=== PATIENT | female | born 1970 | race Caucasian/White ===

== ENCOUNTER → 2016-11-25 | Outpatient (CLI) | payer OTHER | END | disposition home or self-care (01) | LOC: LABWHC1 09:41 | PROVIDERS: ATTEND Internal Medicine Critical Care Medicine | DX: E03.9 Hypothyroidism, unspecified (principal) | CPT/HCPCS: 36415; 84439; 84443 ==

== ENCOUNTER → 2019-06-01 | Outpatient (CLI) | payer OTHER ==
--- NOTE | 2019-06-02 08:48 | CT ---
EXAMINATION TYPE: CT abdomen pelvis w con DATE OF EXAM: 06/01/2019 COMPARISON: NONE HISTORY: 48-year-old female LLQ pain TECHNIQUE: Contiguous axial scanning of the abdomen and pelvis following administration of 100 ml Iso marilyn 300 IV contrast. Delayed images through the kidneys and coronal/sagittal reconstructions perform ed. CT DLP: 823.8 mGycm Automated exposure control for dose reduction was used. FINDINGS: Heart normal size without pericardial effusion. Lung bases clear without pleural effusion. Approximately 10-15 subcentimeter hypodensities within the liver, too small for accurate CT character ization, largest measuring 1.1 cm near the right hepatic dome, probable cysts, but again, indetermina te. Portal venous system is patent. No biliary duct dilatation. Gallbladder, adrenal glands, kidneys, spleen, and pancreas appear within normal limits. 2.2 cm wide d iverticulum of the third portion of the duodenum projecting into the pancreatic head region. No dilated small bowel, free fluid, or free air. No mesenteric or retroperitoneal lymphadenopathy. Mild stool burden. Oral contrast progressed to the descending colon. Mild proximal sigmoid diverticul osis. Bladder urine distended. Very large bulky fibroid uterus measuring up to 16.1 x 10.1 x 9.3 cm. Largest fibroid is at the fundu s, primarily intramural possibly with a submucosal component measuring up to 8.6 cm. There seems to be some heterogeneity in the region of the cervix, refer to axial image 67 and sagitta l image 70. Pelvic phleboliths. 1.67 m dominant follicle or functional cyst in the left ovary. Right ovary is visualized. No abnormal fluid collection in the pelvis or pelvic lymphadenopathy. Bones: No osseous destructive process. IMPRESSION: 1. LARGE, BULKY FIBROID UTERUS MEASURING UP TO 16.1 CM. LARGEST FIBROID IS AT THE FUNDUS, PRIMARILY I NTRAMURAL BUT WITH A POSSIBLE SUBMUCOSAL COMPONENT MEASURING UP TO 8.6 CM. IF INDICATED, FEMALE PELVI C MRI CAN BE PERFORMED FOR FIBROID MAPPING. 2. NUMEROUS SUBCENTIMETER HEPATIC HYPODENSITIES ARE INDETERMINATE BUT LIKELY REPRESENT CYSTS. 3. HETEROGENEOUS DENSITY OF THE CERVIX COULD REPRESENT UNDERLYING NABOTHIAN CYSTS. RECOMMEND PELVIC U LTRASOUND VERSUS MRI AND/OR PAP SMEAR TO FURTHER EVALUATE. 4. MILD PROXIMAL SIGMOID DIVERTICULOSIS WITHOUT EVIDENCE FOR ACUTE DIVERTICULITIS.
== END | disposition home or self-care (01) ==
LOC: RADCTMAIN 13:27
PROVIDERS: ATTEND Internal Medicine Critical Care Medicine
DX: D25.9 Leiomyoma of uterus, unspecified (principal); K57.30 Diverticulosis of large intestine without perforation or abscess without bleeding; N88.8 Other specified noninflammatory disorders of cervix uteri
CPT/HCPCS: 74177; Q9967

== ENCOUNTER → 2021-09-10 | Outpatient (CLI) | payer OTHER ==
[2021-09-10 10:29] LABS: Basophils # (A) 0.06 X 10*3/uL (0.00-0.10); Basophils % (A) 0.8 %; Eosinophils # (A) 0.73 X 10*3/uL (0.04-0.35); Eosinophils % (A) 10.2 %; HCT 45.8 % (37.2-46.3); HGB 14.4 g/dL (12.0-15.0); Immature Grans, Automated 0.6 %; Lymphocytes # (A) 1.38 X 10*3/uL (0.90-5.00); Lymphocytes % (A) 19.2 %; MCHC 31.4 g/dL (32.0-37.0); MCV 85.8 fL (80.0-97.0); Mean Platelet Volume 9.5 fL (9.5-12.2); Monocytes # (A) 0.58 X 10*3/uL (0.20-1.00); Monocytes % (A) 8.1 %; NRBC Per 100 WBC 0 /100 WBCS (0.0-0.0); Neutrophils # (A) 4.38 X 10*3/uL (1.80-7.70); Neutrophils % (A) 61.1 %; Platelet Count 385 X 10*3/uL (140-440); RBC 5.34 X 10*6/uL (4.10-5.20); RDW 13.5 % (11.5-14.5); WBC 7.17 X 10*3/uL (4.50-10.00)
[2021-09-10 11:01] LABS: ALT 13 U/L (8-44); AST 16 U/L (13-35); African American GFR (CKD) 105.5 (60.0-200.0); Albumin 4.2 g/dL (3.8-4.9); Albumin/Globulin Ratio 1.75 (1.60-3.17); Alkaline Phosphatase 87 U/L (41-126); BUN/Creat Ratio 11.64 Ratio (12.00-20.00); Blood Urea Nitrogen 8.8 mg/dL (9.0-27.0); Calcium 9.3 mg/dL (8.7-10.3); Carbon Dioxide 26.5 mmol/L (20.0-27.5); Chloride 107 mmol/L (96-109); Globulin 2.4 g/dL (1.6-3.3); Glucose 99 mg/dL (70-110); LDL Cholesterol,Calculated 173.7 mg/dL (0.0-131.0); Non-African American GFR(CKD) 91.1 (60.0-200.0); Potassium 4.5 mmol/L (3.5-5.5); Sodium 142 mmol/L (135-145); Total Protein 6.6 g/dL (6.2-8.2)
== END | disposition home or self-care (01) ==
LOC: LABWHC1 08:01
PROVIDERS: ATTEND Internal Medicine Critical Care Medicine
DX: Z00.00 Encounter for general adult medical examination without abnormal findings (principal); J45.909 Unspecified asthma, uncomplicated; E03.9 Hypothyroidism, unspecified; K21.9 Gastro-esophageal reflux disease without esophagitis; D25.9 Leiomyoma of uterus, unspecified
CPT/HCPCS: 36415; 80053; 80061; 82306; 83036; 84439; 84443; 85025

== ENCOUNTER → 2021-09-22 | Outpatient (CLI) | payer OTHER ==
--- NOTE | 2021-09-22 15:57 | XR ---
EXAMINATION TYPE: XR knee limited LT DATE OF EXAM: 09/22/2021 2:28 PM INDICATION: Patient age:Female; 50 years old; Reason for study: M25.462 EFFUSION, LEFT KNEE; PHH. COMPARISON: Left tibia/fibular radiograph 03/14/2013. TECHNIQUE: The Left knee(s) was examined in frontal and lateral projections. FINDINGS: No evidence of any acute osseous pathology, joint space narrowing, or soft tissue swellin g. Trace suprapatellar joint effusion. IMPRESSION: * No acute fracture or dislocation. * Trace suprapatellar joint effusion.
== END | disposition home or self-care (01) ==
LOC: RADXRMAIN 14:17
PROVIDERS: ATTEND Internal Medicine Critical Care Medicine
DX: M25.462 Effusion, left knee (principal)

== ENCOUNTER → 2021-11-03 | Outpatient (CLI) | payer OTHER ==
--- NOTE | 2021-11-03 10:06 | MR ---
EXAMINATION TYPE: MR knee LT wo con DATE OF EXAM: 11/03/2021 COMPARISON: None HISTORY: LEFT KNEE PAIN TECHNIQUE: Multiplanar, multisequence imaging of the left knee is performed without IV contrast. FINDINGS: MEDIAL MENISCUS: Anterior and posterior horns are intact without tear. LATERAL MENISCUS: Anterior and posterior horns are intact without tear. CRUCIATE LIGAMENTS: Increased signal within the ACL is felt to reflect partial tear or strain. No vance dence for full-thickness tear. PCL is intact. COLLATERAL LIGAMENTS: The medial collateral ligament and lateral collateral ligament complex are inta ct and unremarkable. EXTENSOR MECHANISM: Visualized quadriceps and patellar tendons are intact. EFFUSION: No significant suprapatellar joint effusion. POPLITEAL CYST: No popliteal/donaldson cyst. TRICOMPARTMENT SPACES: Within normal limits CARTILAGE: Intact BONE MARROW SIGNAL: No focal abnormal marrow signal is appreciated. OTHER: No additional significant abnormality is appreciated. IMPRESSION: 1.Increased signal within the ACL is felt to reflect partial tear or strain. No evidence for full-thi ckness tear.
== END | disposition home or self-care (01) ==
LOC: RADMRIMAIN 07:37
PROVIDERS: ATTEND Orthopaedic Surgery
DX: M25.562 Pain in left knee (principal)

== ENCOUNTER → 2022-01-06 | Outpatient (CLI) | payer OTHER ==
[2022-01-06 14:33] LABS: Basophils # (A) 0.06 X 10*3/uL (0.00-0.10); Basophils % (A) 0.9 %; Eosinophils # (A) 0.68 X 10*3/uL (0.04-0.35); Eosinophils % (A) 9.7 %; HCT 46.3 % (37.2-46.3); HGB 14.9 g/dL (12.0-15.0); Immature Grans, Automated 0.4 %; Lymphocytes # (A) 1.25 X 10*3/uL (0.90-5.00); Lymphocytes % (A) 17.9 %; MCH 28.1 pg (27.0-32.0); MCHC 32.2 g/dL (32.0-37.0); MCV 87.2 fL (80.0-97.0); Mean Platelet Volume 10.2 fL (9.5-12.2); Monocytes # (A) 0.54 X 10*3/uL (0.20-1.00); Monocytes % (A) 7.7 %; NRBC Per 100 WBC 0 /100 WBCS (0.0-0.0); Neutrophils # (A) 4.42 X 10*3/uL (1.80-7.70); Neutrophils % (A) 63.4 %; Platelet Count 392 X 10*3/uL (140-440); RBC 5.31 X 10*6/uL (4.10-5.20); RDW 13.4 % (11.5-14.5); WBC 6.98 X 10*3/uL (4.50-10.00)
== END | disposition home or self-care (01) ==
LOC: LABPAT 08:58
PROVIDERS: ATTEND Orthopaedic Surgery
DX: Z01.818 Encounter for other preprocedural examination (principal); M23.92 Unspecified internal derangement of left knee; R94.31 Abnormal electrocardiogram [ECG] [EKG]
CPT/HCPCS: 85025; 93005

== ENCOUNTER 2022-01-21 09:49 | Day surgery (SDC) | payer OTHER ==
--- NOTE | 2022-01-21 02:09 | HP ---
HISTORY AND PHYSICAL DATE OF SURGERY: 01/21/2022. HISTORY OF PRESENT ILLNESS: Reina Veloz is a 51-year-old patient who was seen with progressive left knee pain. After having treatment options discussed, she elected to proceed with left knee arthroscopy. Consent was obtained. PAST MEDICAL HISTORY: Hypothyroidism, asthma. PAST SURGICAL HISTORY: Noncontributory. DAILY MEDICATIONS: 1. Levothyroxine. 2. Singulair. ALLERGIES: None. SOCIAL HISTORY: She denies current tobacco use. PHYSICAL EVALUATION OF THE LEFT KNEE: Range of motion is 0-130. Mild effusion. Tenderness medial joint line. Positive medial Ann's. Ligaments stable. Hip rotation without pain. Distal neurovascular exam intact. RADIOGRAPHS: Left knee radiographs revealed no osseous abnormality. MRI left knee revealed a partial ACL tear. IMPRESSION: 1. Internal derangement left knee with partial ACL tear. 2. Hypothyroidism. 3. Asthma. PLAN: Left knee arthroscopy with debridement, possible partial medial meniscectomy. MMODL / IJN: [id number] /
[~2022-01-21 09:49] MED LIST: DEXAMETHASONE SOD PHOSPHATE 4 MG/ML 1 ML VIAL IV ONE; HYDROmorphone 0.5 MG/0.5 ML SYRINGE IVP PRN; LACTATED RINGERS 1,000 ML IV SCH; LIDOCAINE 1% (10MG/ML) FOR IV START INTRADERMA PRN; MIDAZOLAM 2 MG/2 ML VIAL IV PRN; ONDANSETRON 4 MG/2 ML VIAL IVP ONE
[2022-01-21 10:44] VITALS: TEMP 97.2
[2022-01-21 10:56] LABS: Glucose,Whole Blood 98 mg/dL (70-110)
[2022-01-21 11:17] LABS: Potassium 4.5 mmol/L (3.5-5.1)
[2022-01-21] MEDS ORDERED: MIDAZOLAM 2 MG/2 ML VIAL ONE (12:21)
[2022-01-21] MEDS ORDERED: SUCCINYLCHOLINE CHLORIDE 200 MG/10 ML VIAL IV ONE (12:21)
[2022-01-21] MEDS ORDERED: PROPOFOL 10 MG/ML 20 ML VIAL IV ONE (12:21)
[2022-01-21] MEDS ORDERED: LIDOCAINE 2% INJ 20 MG/ML (2 ML VIAL) ONE (12:21)
[2022-01-21] MEDS ORDERED: fentaNYL (PF) 50 MCG/ML 2 ML AMP ONE (12:21)
[2022-01-21] MEDS ORDERED: BUPIVACAINE (PF) 0.25% 30 ML VIAL SQ ONE ×2 (12:34→12:59)
[2022-01-21] MEDS ORDERED: LACTATED RINGERS 1,000 ML IV ONE (12:52)
--- NOTE | 2022-01-21 13:11 | P.OP ---
Date of Procedure: 01/21/22 Preoperative Diagnosis: Internal derangement left knee Postoperative Diagnosis: 1. Tear medial and lateral meniscus left knee 2. Reactive synovitis medial, lateral and suprapatellar compartments left knee Procedure(s) Performed: 1. Arthroscopic partial medial and lateral meniscectomy left knee 2. Arthroscopic partial synovectomy medial, lateral and suprapatellar compartments left knee Anesthesia: GETA, local Surgeon: Pablo Cordova Estimated Blood Loss (ml): 7 Pathology: none sent Condition: stable Disposition: PACU Indications for Procedure: 51-year-old patient seen with progressive left knee pain. After treatment options were discussed, she elected to proceed with arthroscopy. Operative Findings: See description of procedure Description of Procedure: Patient was taken to the operative suite. Patient underwent a general anesthetic by the department of anesthesia. Patient was given preoperative antibiotics. The left lower extremity was placed in a well-padded arthroscopic leg chapin. The left leg was prepped and draped in the normal sterile orthopedic fashion. A lateral parapatellar and suprapatellar incision was made. Trochars were inserted. Arthroscopy was initiated. Suprapatellar pouch re vealed diffuse thick reactive synovitis. The patellofemoral joint appeared to articulate congruently. There with grade 1/2 chondromalacia patella without significant osteochondral tears.. The scope was guided into the medial gutter. No loose bodies or plica were identified. The scope was then guided into the medial compartment. A medial parapatellar incision was made. Trocar inserted followed by probe. There was a small radial tear posterior horn medial meniscus. There was no significant chondromalacia of the medial compartment. There was some reactive synovitis anteriorly. I performed a partial medial meniscectomy getting down to stable meniscal tissue. I performed a partial synovectomy decompressing the reactive synovitis. The residual meniscus was stable. There was good decompression of the synovitis. Scope and probe were then guided into the intercondylar notch. Cruciates were identified, probed and found to be stable. The scope and probe were then guided into lateral compartment. There was a radial tear mid body lateral meniscus. There was no significant chondromalacia. There was reactive synovitis anteriorly. I performed a partial lateral meniscectomy. I performed a partial synovectomy. residual meniscus was stable. I performed a partial synovectomy. The scope was in guided back into the suprapatellar compartment. I performed a partial synovectomy decompressing the reactive synovitis. The shaver was removed. There was good decompression of the synovitis. I took one more look around the entire knee, no residual debris. Instruments were now removed from the joint. The joint was infiltrated with .25% Marcaine. Steri-Strips were applied to the portal sites. Sterile dressings were applied. The patient was placed into a VIVIANE hose. No tourniquet was utilized. The patient was awakened, transferred to a bed and taken to recovery stable satisfactory condition.
[2022-01-21] MEDS ORDERED: HYDROcodone/APAP 5-325MG 1 EACH TAB ONE (14:11)
[2022-01-21] MEDS ORDERED: HYDROcodone/APAP 5-325MG 1 EACH TAB PO ONE (14:11)
[2022-01-21 14:47] VITALS: RESP 20
[2022-01-21 15:23] VITALS: BP 123/65; PULSE 68
== END 2022-01-21 15:12 | disposition home or self-care (01) ==
LOC: OR 09:49
PROVIDERS: ATTEND Orthopaedic Surgery
DX: S83.282A Other tear of lateral meniscus, current injury, left knee, initial encounter (principal); E03.9 Hypothyroidism, unspecified; J45.909 Unspecified asthma, uncomplicated; Z79.899 Other long term (current) drug therapy; X58.XXXA Exposure to other specified factors, initial encounter
CPT/HCPCS: 81025; 80051; 29880; J2250; J0330; J1100; J0690; J2405; J3010; J2704; J2001

== ENCOUNTER → 2023-09-09 | Outpatient (CLI) | payer OTHER ==
--- NOTE | 2023-09-09 12:51 | US ---
EXAMINATION TYPE: US venous doppler duplex LE DATE OF EXAM: 09/09/2023 12:35 PM COMPARISON: NONE CLINICAL INDICATION: Female, 52 years old with history of R22.42 LOCALIZED SWELLING, MASS AND LUMP, L EFT LOW; edema SIDE PERFORMED: Bilateral TECHNIQUE: The lower extremity deep venous system is examined utilizing real time linear array sonog ok with graded compression, doppler sonography and color-flow sonography. VESSELS IMAGED: Common Femoral Vein Deep Femoral Vein Greater Saphenous Vein * Femoral Vein Popliteal Vein Small Saphenous Vein * Proximal Calf Veins (* superficial vessels) Right Leg: Negative for DVT Left Leg: Negative for DVT IMPRESSION: Grayscale, color doppler, spectral doppler imaging performed of the deep veins of the lo wer extremities. There is normal flow, compressibility, vascular waveforms.
== END | disposition home or self-care (01) ==
LOC: RADUSWWP 12:14
PROVIDERS: ATTEND Internal Medicine Critical Care Medicine
DX: R22.42 Localized swelling, mass and lump, left lower limb (principal)
CPT/HCPCS: 93970

== ENCOUNTER 2023-11-15 07:41 | Day surgery (SDC) | payer OTHER ==
[~2023-11-15 07:41] MED LIST changes: -DEXAMETHASONE SOD PHOSPHATE 4 MG/ML 1 ML VIAL IV ONE; -HYDROmorphone 0.5 MG/0.5 ML SYRINGE IVP PRN; -LACTATED RINGERS 1,000 ML IV SCH; -LIDOCAINE 1% (10MG/ML) FOR IV START INTRADERMA PRN; -MIDAZOLAM 2 MG/2 ML VIAL IV PRN; -ONDANSETRON 4 MG/2 ML VIAL IVP ONE; +Pre Op ABX Message 1 EACH MISC MISCELLANE ONE
--- NOTE | 2023-11-15 07:44 | P.GSHP ---
History of Present Illness H&P Date: 11/15/23 Chief Complaint: Left thigh lipoma 53-year-old female here for excision left thigh lipoma. Present for quite some time but increasing in size. Soreness at times. No prior biopsy or excisions. Past Medical History Past Medical History: Asthma, Thyroid Disorder Additional Past Medical History / Comment(s): Seasonal allergies. History of Any Multi-Drug Resistant Organisms: None Reported Past Surgical History: Orthopedic Surgery, Uterine Ablation Additional Past Surgical History / Comment(s): Trigger finger surgery, lft knee torn mensicus, Past Anesthesia/Blood Transfusion Reactions: No Reported Reaction Additional Past Anesthesia/Blood Transfusion Reaction / Comment(s): difficulty waking up Smoking Status: Former smoker - Past Family History Father Family Medical History: Congestive Heart Failure (CHF), Hyperlipidemia, Hypertension, Renal Disease Additional Family Medical History / Comment(s): Dialysis Mother Family Medical History: Diabetes Mellitus Medications and Allergies Home Medications Medication Instructions Recorded Confirmed Type Levothyroxine Sodium [Synthroid] 75 mcg PO DAILY 05/18/17 11/09/23 History Montelukast [Singulair] 10 mg PO HS 01/19/22 11/09/23 History Albuterol Inhaler [Ventolin Hfa 1 - 2 puff INHALATION Q6H PRN 01/20/22 11/09/23 History Inhaler] Iron(Unk) 1 tab PO Q72H 11/09/23 11/09/23 History Vit D(Unk) 1 tab PO DAILY 11/09/23 11/09/23 History Allergies Allergy/AdvReac Type Severity Reaction Status Date / Time No Known Allergies Allergy Verified 11/09/23 14:00 Surgical - Exam Physical exam: General: Well-developed, well-nourished HEENT: Normocephalic, sclerae nonicteric Abdomen: Nontender, nondistended Extremities: No edema, left thigh with pedunculated left thigh lipoma 6 x 4 cm Neuro: Alert and oriented Assessment and Plan (1) Lipoma of left thigh Narrative/Plan: 53-year-old female with left thigh lipoma. Will proceed with excision left thigh lipoma at this time. Risks of bleeding, infection, recurrence, seroma, possible need for drain placement, numbness, nerve injury reviewed. She understands and wishes to proceed. Current Visit: Yes Status: Acute Code(s): D17.24 - BENIGN LIPOMATOUS NEOPLASM OF SKIN, SUBCU OF LEFT LEG SNOMED Code(s): 241236875
[2023-11-15] MEDS ORDERED: HYDROmorphone 0.5 MG/0.5 ML SYRINGE IVP PRN (08:07)
[2023-11-15] MEDS ORDERED: LIDOCAINE 1% (10MG/ML) FOR IV START INTRADERMA PRN (08:07)
[2023-11-15] MEDS ORDERED: droPERidol 5 MG/2 ML VIAL IVP PRN (08:07)
[2023-11-15] MEDS: ONDANSETRON 4 MG/2 ML VIAL IVP ONE (08:34)
[2023-11-15] MEDS: HEPARIN SODIUM,PORCINE 5,000 UNIT/ML 1 ML VIAL SQ PRN (08:34)
[2023-11-15] MEDS: DEXAMETHASONE SOD PHOSPHATE 4 MG/ML 1 ML VIAL IV ONE (08:34)
[2023-11-15] MEDS: ACETAMINOPHEN TAB 500 MG TAB PO PRN (08:34)
[2023-11-15] MEDS: LACTATED RINGERS 1,000 ML IV SCH (08:41)
[2023-11-15] MEDS: IV FLUID CONTINUATION 1,000 ML IV ONE ×3 (08:56→10:28)
[2023-11-15] MEDS ORDERED: fentaNYL (PF) 50 MCG/ML 2 ML AMP ONE (09:06)
[2023-11-15] MEDS ORDERED: LIDOCAINE 1% INJ 10MG/ML (20 ML MDV) ONE (09:06)
[2023-11-15] MEDS ORDERED: MIDAZOLAM 2 MG/2 ML VIAL ONE (09:06)
[2023-11-15] MEDS ORDERED: PROPOFOL 10 MG/ML 20 ML VIAL IV ONE (09:06)
[2023-11-15] MEDS: LIDOCAINE 1%-EPI 1:100,000 20 ML VIAL SQ ONE ×2 (09:30)
[2023-11-15] MEDS ORDERED: PROMETHAZINE 25 MG TAB PO PRN (09:38)
[2023-11-15] MEDS ORDERED: NALOXONE 0.4 MG/ML 1 ML VIAL IV PRN (09:38)
[2023-11-15] MEDS ORDERED: traMADol 50 MG TAB PO PRN (09:38)
--- NOTE | 2023-11-15 09:41 | P.OP ---
Date of Procedure: 11/15/23 Procedure(s) Performed: PREOPERATIVE DIAGNOSIS: Left thigh lipoma POSTOPERATIVE DIAGNOSIS: Same PROCEDURE: Excision 8 x 7 cm left thigh lipoma with intermediate closure SURGEON: Jonny EBL: 5 cc ANESTHESIA: General COMPLICATIONS: None OPERATIVE PROCEDURE: Patient placed supine and frog-leg position. The left mid anterior medial thigh was prepped and draped sterilely. The palpable mass was present. A longitudinal incision was made overlying the mass. Subcutaneous tissues were dissected primarily using blunt dissection. The lipomatous mass was fully excised. This measured 8 x 7 x 4 cm. This was sent to pathology. Subcutaneous tissues closed using interrupted 3-0 Vicryl sutures. Skin closed using a running 4-0 Monocryl stitch. Skin glue and sterile dressings applied. Length of intermediate closure 5 cm. DISPOSITION: Stable to recovery room
[2023-11-15 09:56] VITALS: TEMP 97.2
[2023-11-15 10:40] VITALS: BP 129/91; PULSE 68; RESP 16
== END 2023-11-15 10:59 | disposition home or self-care (01) ==
LOC: OR 07:41
PROVIDERS: ATTEND Surgery
DX: D17.24 Benign lipomatous neoplasm of skin and subcutaneous tissue of left leg
CPT/HCPCS: 88304